=== PATIENT | female | born 1970 | race Caucasian/White ===

== ENCOUNTER 2019-12-30 09:42 | Emergency (ER) | payer MEDICAID ==
[~2019-12-30] VITALS: Ht 154.9 cm; Wt 117.5 kg
[2019-12-30 11:07] LABS: BASOPHIL % 0.3 % (0-2); PLATELET COUNT 203 x10^3mcL (130-400); RED CELL DISTRIBUTION WIDTH 12.7 % (11.5-14.5)
[2019-12-30 11:34] LABS: CARBON DIOXIDE 21.1 mmol/L (21-32); CHLORIDE SERUM 102 mmol/L (98-107); CREATININE SERUM 0.9 mg/dL (0.6-1.0); GFR1 > 60 mL/min; GLUCOSE SERUM 236 mg/dL (74-106); POTASSIUM SERUM 3.7 mmol/L (3.5-5.1); SODIUM SERUM 138 mmol/L (136-145)
[2019-12-30 11:38] LABS: ALKALINE PHOSPHATASE 123 U/L (46-116); ALT/SGPT 45 U/L (14-59); AST/SGOT 45 U/L (15-37); BILIRUBIN TOTAL 0.4 mg/dL (0.20-1.00); TOTAL PROTEIN, SERUM 7.3 g/dL (6.4-8.2)
[2019-12-30 11:39] LABS: ALBUMIN 3.1 g/dL (3.4-5.0)
[2019-12-30 13:21] VITALS: BP 142/77
== END 2019-12-30 13:21 | disposition home or self-care (01) ==
LOC: ED 09:42
PROVIDERS: Emergency Medicine
DX: N92.1 Excessive and frequent menstruation with irregular cycle (principal); R11.0 Nausea; Z98.890 Other specified postprocedural states
CPT/HCPCS: J1885; J7030; Q0092